=== PATIENT | female | born 1960 | race Caucasian/White ===

== ENCOUNTER 2022-08-17 12:37 | Emergency (ER) | payer MEDICAID, SELFPAY ==
--- NOTE | ~2022-08-17 | XR_ITS ---
EXAMINATION: XR HAND, LEFT CLINICAL INFORMATION: Rule out foreign body COMPARISON: None available. TECHNIQUE: PA, lateral, and oblique views of the left hand. FINDINGS: No acute fracture or dislocation is seen. Mild-moderate first CMC arthritis. Mild arthritis in some of the interphalangeal joints of the fingers. Alignment is anatomic. No erosions or soft tissue calcifications. No radiopaque foreign body is identified XR/XR hand LT min 3V IMPRESSION: No radiopaque foreign body is identified. Clinically correlate. No radiographic evidence of acute fracture or malalignment. Arthritis as above.
[2022-08-17 13:13] VITALS: BP 143/100; PULSE 80; RESP 16; TEMP 36.6; O2SAT 97; BMI 31.9
--- NOTE | 2022-08-17 13:13 | ED.WOUNDLAC ---
HPI - Wound/Laceration General Chief Complaint: Wound/Laceration Stated Complaint: l hand laceration sent by urgent care Time Seen by Provider: 08/17/22 13:21 History of Present Illness HPI narrative: patient complains of laceration to the left hand from a broken glass this morning, she cannot fully lift her index finger to straighten it, otherwise there is no other injury no loss of sensation no weakness Related Data Previous Rx's Medication Instructions Recorded cephalexin 500 mg tablet 500 mg PO QID 3 days #12 tabs 08/17/22 Allergies Allergy/AdvReac Type Severity Reaction Status Date / Time No Known Allergies Allergy Verified 08/17/22 13:13 [facility] Past Medical History Source: nursing notes reviewed Social History Social History Advance Directives: Yes Advance Directives Information Provided: Yes Advance Directives on File: No Physical Exam Vital Signs: Vital Signs: Last Vital Signs Temp 97.9 F 08/17/22 13:13 Pulse 80 08/17/22 13:13 Resp 16 08/17/22 13:13 BP 143/100 H 08/17/22 13:13 Pulse Ox 97 08/17/22 13:13 O2 Del Method Room Air 08/17/22 13:13 BMI result Body Mass Index 31.9 general appearance no distress Head normocephalic atraumatic Neck is supple Respiratory no distress Extremities the left hand dorsal has a vertical laceration over the 2nd MCP joint that is about 1.5 cm, flexion is fully intact but on extension there is less strength on extension and she cannot fully extend the distal part of the finger Other extremities normal Course Course Course Narrative: This is an RME: Additional HPI, ROS, PE not included below will be deferred to primary provider. Patient is a 62-year-old female who presents emergency department from urgent care for a laceration to the left hand. Reports this morning she was washing a glass had a crack when she sustained a cut to the top of the 2nd PIP. Urgent Care was concerned for potential tendon involvement therefore she was advised to come to the emergency department and also have tetanus updated. She is able to fully flex and extend the 2nd digit. Of note she is currently taking doxycycline for sinusitis, has 5 additional days before completion. Plan: brought to [facility] [place] Patient did have a deficit on extension of left 2nd finger with decreased strength on extension in the mid and distal phalanx Patient was given a tetanus shot Given prophylactic Keflex antibiotic for 3 days and is advised to follow with hand doctor for follow-up and given the number to be evaluated for possible repair of injury to extensor tendon left index finger Procedure note left index finger anesthesia is 5 cc of 1% lidocaine Copiously irrigated 4x5.0 nylon sutures are placed Dressing is placed Well-appearing patient on prophylactic antibiotic given a tetanus shot is discharged to follow with Hand for extensor tendon deficit in left index finger A finger splint was placed in mild extension Medications Administered Discontinued Medications Generic Name Dose Route Start Last Admin Trade Name Freq PRN Reason Stop Dose Admin Diphtheria/Tetanus/Acell Pertussis 0.5 ml 08/17/22 14:02 08/17/22 14:15 Diphth,Pertus(Acell),Tet Adult 0.5 Ml Syringe IM 08/17/22 14:03 0.5 ml .ONCE ONE Administration Lidocaine HCl 5 ml 08/17/22 14:02 08/17/22 14:16 Lidocaine Hcl 1 % Mpf 5 Ml Vial SUBCUT 08/17/22 14:03 5 ml ONCE ONE Administration Discharge Plan Discharge Clinical Impression: Laceration, Injury of tendon of hand Patient Disposition: Home, Self-Care Additional Instructions: on exam your unable to straighten the index finger so that means it is very likely of an injury to the extensor tendons of the left index finger We closed the wound with stitches but did not repair the tendon laceration, see you will need to follow with the hand doctor to evaluate whether you need that to be repair So call the hand doctor's office on Friday to make an appointment, make sure they know it is for a tendon injury which usually needs to be seen in 5 days so make sure to tell them that the PA in the emergency room said this should be seen within 5 days next week to decide if it needs a surgery Stitches will need to come out in 7 days Return any time for redness swelling infection, any worse condition any concerns You got a tetanus shot today and we started preventative antibiotic Keflex Prescriptions: New cephalexin 500 mg tablet 500 mg PO QID 3 Days Qty: 12 0RF Referrals: Celine Lewis MD [Physician] - ( left index finger extensor tendon laceration with deficit on extension)
[2022-08-17] MEDS: Diphth,Pertus(ACell),Tet Adult 0.5 ML SYRINGE IM (14:15)
[2022-08-17] MEDS: Lidocaine HCl 1 % MPF 5 ML VIAL SUBCUT (14:16)
[2022-08-17] MEDS: cephALEXin 500 MG CAPSULE PO (15:38)
== END 2022-08-17 15:44 | disposition home or self-care (01) ==
PROVIDERS: Emergency Provider Emergency Medicine; PCP Nurse Practitioner Family
DX: S61.412A Laceration without foreign body of left hand, initial encounter (principal); S66.321A Laceration of extensor muscle, fascia and tendon of left index finger at wrist and hand level, initial encounter; W25.XXXA Contact with sharp glass, initial encounter; Y93.9 Activity, unspecified; Y92.9 Unspecified place or not applicable; Y99.9 Unspecified external cause status
CPT/HCPCS: 12001; 29130; 73130; 90471; 90715; 99282; 99284

== ENCOUNTER → 2022-08-21 14:16 | Outpatient (BNVA) | payer MEDICAID, SELFPAY | PROVIDERS: PCP Nurse Practitioner Family; Visit Provider Orthopaedic Surgery | DX: S61.211A Laceration without foreign body of left index finger without damage to nail, initial encounter (principal) | CPT/HCPCS: 99212 ==

== ENCOUNTER 2022-08-22 08:39 | Outpatient (RCR) | payer MEDICAID, SELFPAY ==
--- NOTE | 2022-08-22 14:47 | MHC.OT.DC ---
[address] [phone] F: [phone] Occupational Therapy Discharge Note Patient Name: Nasreen Sinha Provider: Celine Lewis Diagnosis: Right index laceration at MCPj , sagittal band injury Date of Surgery: 08/17/22 Date of Evaluation: 08/22/22 Date of Discharge: 08/22/22 Treatments to Date: 1 Cancellations to Date: No Shows to Date: Discharge Status: Independent with HEP Recommend MD Follow-up Discharge Summary: Nasreen is a 62 year old left hand dominant woman who sustained a right index finger laceration from a glass that broke while she was washing it. DOI: 08/17/22. She was seen in the ED on 08/17 where she was sutured and given a course of Abx, She followed up with Dr Lewis. Pt referred to OT for a hand based splint to block right index MCPJ flexion block to 40 degrees. Fabricated a custom hand based left index MCPj flexion block to 40 deg, IP's free. Pt indep with manoj hand based splint Pt to follow up with Dr Lewis next week Skilled OT not needed at this time. Pt traveling from [facility] for her OT appointment today. I recommended OT/ Hand Therapy at [facility] in [facility] for convenience. Electronically Signed By: Emilia Noble OT CHT CLT Reviewed/agree with student documentation: Therapist: Please Sign and return to therapist, thank you for your referral.
== END 2022-08-22 14:47 | disposition home or self-care (01) ==
LOC: HO.OT 08:39
PROVIDERS: PCP Nurse Practitioner Family; Visit Provider Orthopaedic Surgery
DX: M66.242 Spontaneous rupture of extensor tendons, left hand (principal)
CPT/HCPCS: 29130; 97165

== ENCOUNTER → 2022-08-28 11:21 | Outpatient (BNVA) | payer MEDICAID, SELFPAY | PROVIDERS: PCP Nurse Practitioner Family; Visit Provider Orthopaedic Surgery | DX: S61.211D Laceration without foreign body of left index finger without damage to nail, subsequent encounter (principal) | CPT/HCPCS: 99212 ==

== ENCOUNTER 2022-09-25 13:51 | Outpatient (AMB) | payer MEDICAID, SELFPAY ==
[2022-09-25 13:52] VITALS: BMI 31.9
--- NOTE | 2022-09-25 13:52 | A.OFFVIS_ITS ---
Intake Vital Signs 09/25/22 13:52 Height 5 ft 3 in Weight 180 lb BMI 31.9 Intake Visit Reasons: OV-Left 2nd finger lac tendon injury-F/U Intake Note: Nasreen is a 62 year old female presents today for her follow up visit of her left index finger laceration from DOI: 08/17/22 ROM check. States she has been working on her ROM at home with good improvement. Also states she is having numbness in her thumb and worsens with her thumb brace. Allergies No Known Allergies Allergy (Verified 09/25/22 13:56) HPI OV-Left 2nd finger lac tendon injury-F/U HPI Details Nasreen is a 62 year old left hand dominant woman who presents for a follow-up of her left index finger laceration, with partial sagittal band injury, DOI: 08/17/22. She was fitted for a custom thermoplastic splint by OT holding her MCP joint in only about 30 degrees flexion but allowing for PIP joint range of motion. She says she is doing well and has been working on ROM. She says she has some numbness in her thumb, which is worsen when wearing her brace. She works as a [employer]. [facility] Medical History Acid reflux Fatty liver High cholesterol Social History Patient Tobacco Use Status: Former Tobacco user Current occupational status: employed Current occupation: home health care, left hand dominant Physical Exam Vital Signs: BMI result Body Mass Index 31.9 Extrem Other: Evaluation of Left Upper Extremity: The patient is alert, oriented, and in no acute distress Neuro: Median, Ulnar, Radial nerves motor and sensory intact and sensation is normal to the tips of all digits Vascular: Cap refill brisk ROM: She can make a fist and extend all her digits, including her index finger individually Good active extension of the index finger, with some hyperextension at the MCP joint She is a little stiff in flexion as she has been wearing her splint for the last 6 weeks I had her make a fist and extend multiple times with no subluxation of the extensor tendon at the MCP joint Her laceration is healing well, her skin is not stuck down to the underlying tendons Assessment & Plan Assessment & Plan (1) Laceration of left index finger: Code(s): S61.211A - Laceration without foreign body of left index finger without damage to nail, initial encounter Plan Assessment & Plan: 1. Left index finger laceration, with partial sagittal band injury Measuring ~1.5cms in length, appears to have extended through the sagittal band and into the MCP joint DOI: 08/17/22 Good active extension of the index finger No ulnar deviation of the extensor mechanism I had her make a fist and extend multiple times with no subluxation of the extensor tendon at the MCP joint I educated her about this condition She will discontinue her finger splint at this time I discussed activity modifications, she is to work on ROM exercises at home. She should limit or avoid any heavy lifting or gripping activities for the next few weeks She will continue to work with OT hand therapy on ROM exercises She can follow up prn Scribed for Celine Lewis MD by Ben Moore, medical physics professor, on 09/25/22 at 2:15 PM, EST. Coding Level of Care Code Est Pt Level 3 (17750) Diagnoses Laceration of left index finger S61.211A
== END 2022-09-25 14:17 | disposition home or self-care (01) ==
PROVIDERS: PCP Nurse Practitioner Family; Visit Provider Orthopaedic Surgery
DX: S61.211A Laceration without foreign body of left index finger without damage to nail, initial encounter (principal)
CPT/HCPCS: 99213

== ENCOUNTER → 2022-09-25 13:51 | Outpatient (BNVA) | payer MEDICAID, SELFPAY | PROVIDERS: PCP Nurse Practitioner Family; Visit Provider Orthopaedic Surgery | DX: S61.211A Laceration without foreign body of left index finger without damage to nail, initial encounter (principal); W26.9XXA Contact with unspecified sharp object(s), initial encounter; Y93.9 Activity, unspecified; Y92.9 Unspecified place or not applicable; Y99.8 Other external cause status | CPT/HCPCS: 99212 ==